=== PATIENT | male | born 1970 | race African-American/Black ===

== ENCOUNTER 2021-05-16 02:21 | Emergency (ER) | payer SELFPAY ==
[2021-05-16 02:34] VITALS: BP 127/82; PULSE 75; RESP 18; TEMP 37.1; O2SAT 96
--- NOTE | 2021-05-16 02:43 | PC.NURSE ---
Per ED MD Rose and anode rebuilder, pt does not require sitter at this time. Will reassess pt after police booking officer leaves.
--- NOTE | 2021-05-16 03:07 | ED.PSYCH ---
HPI - Psych General Chief Complaint: Psychiatric Symptoms Stated Complaint: ANXIETY, SI WITH NO PLAN Time Seen by Provider: 05/16/21 02:28 History of Present Illness HPI Narrative: Patient is a 51-year-old male who presents ER with reports of suicidal ideation. Patient apparently was at [employer] and did not want to pay for his food. Police arrived. He has made statements that he was suicidal and so police brought him to the emergency room. During my evaluation the patient patient reports that he has no suicidal ideation at this time. Reports he merely had anxiety that he may get into a confrontation with another person. Denies hearing voices or seeing things are not actually there. He has no homicidal ideation. Reports history of paranoid schizophrenia in the past but has never been on any psychiatric medication outpatient. Reports he has been seen at [facility] in the past as well. Patient reports that this time he just like to sleep in the ER. He has no physical complaints of pain or other medical ailments. Review of Systems Review of Systems: All systems reviewed & are unremarkable except as noted in HPI and below Constitutional: Constitutional: Denies chills, Denies fever(s) and Denies weakness Cardiovascular: Cardiovascular: Denies chest pain, Denies rapid heart rate and Denies radiating jaw, neck or arm pain Respiratory: Respiratory: Denies cough, Denies dyspnea and Denies wheezing Gastrointestinal: Gastrointestinal: Denies abdominal pain, Denies nausea and Denies vomiting Neurologic: Denies headache(s), Denies focal weakness and Denies numbness Psychiatric: Psychiatric: Reports anxiety, Denies depression, Denies homicidal ideation and Denies suicidal ideation PMFSH Past Medical History Medical History (Updated 05/16/21 @ 03:11 by Trey Rose MD) Schizophrenia Unverified Surgical History Surgical History (Updated 05/16/21 @ 03:09 by Trey Rose MD) No pertinent past surgical history Social History Social History Substance use type: unknown Exam Narrative: GENERAL: Well-appearing, well-nourished, and in no acute distress. HEAD: Normocephalic, atraumatic. ENT: Mucous membranes moist. CHEST: Clear to auscultation. No respiratory distress. HEART: Regular rate and rhythm. Normal peripheral pulses. ABDOMEN: Soft, nontender, nondistended. EXTREMITIES: Normal range of motion. No edema. SKIN: Warm, dry, no rash. NEURO: Alert and oriented x3. PSYCH: Normal mood and affect. Course Course Emergency Course: Patient with no medical complaints. No complaints of SI or HI. No active hallucinations and responds appropriately. [place] appropriate for discharge. Suspect he is trying to avoid additional interaction with the police. Vital Signs Vital signs: Vital Signs Temperature 98.8 F 05/16/21 02:34 Pulse Rate 75 05/16/21 02:34 Respiratory Rate 18 05/16/21 02:34 Blood Pressure 127/82 05/16/21 02:34 Pulse Oximetry 96 05/16/21 02:34 Temperature 98.8 F 05/16/21 02:34 Pulse Rate 75 05/16/21 02:34 Respiratory Rate 18 05/16/21 02:34 Blood Pressure 127/82 05/16/21 02:34 Pulse Oximetry 96 05/16/21 02:34 Discharge Plan Discharge Clinical Impression: Anxiety Patient Disposition: Home, Self-Care Condition: Stable Instructions: Anxiety (ED) Additional Instructions: Return to the ER if you have chest pain or shortness of breath, you cannot keep down food or water, you lose consciousness, you have additional concerns. Follow-up/Referrals: Mil Nelson MD [Physician] - UNKNOWN,DOCTOR [Primary Care Provider] -
--- NOTE | 2021-05-16 03:27 | PC.NURSE ---
assuming care of this pt from rossi anderson. ed physician speaking with pt. pt denies si or hi. pt was just looking for place to rest. [place] patrol police lieutenant informed.
--- NOTE | 2021-05-16 03:33 | PC.NURSE ---
pt refuses to sign d/c papers. copy given to pt in his belonging bag which has been placed at bedside. police informed that pt being uncooperative with d/c
--- NOTE | 2021-05-16 03:46 | PC.NURSE ---
pt escorted out of room 11 and to exit. police no longer involved with case
--- NOTE | 2021-05-16 03:53 | PC.NURSE ---
pt stopped in bathroom and did not leave unit. security outside bathroom door waiting on pt to emerge.
--- NOTE | 2021-05-16 04:03 | PC.NURSE ---
pt left ed without event. security present.
== END 2021-05-16 03:46 | disposition home or self-care (01) ==
PROVIDERS: Emergency Provider Emergency Medicine
DX: F41.9 Anxiety disorder, unspecified (principal)
CPT/HCPCS: 99281

== ENCOUNTER 2021-05-16 11:21 | Emergency (ER) | payer SELFPAY ==
--- NOTE | ~2021-05-16 | XR_ITS ---
EXAMINATION: XR hand RT min 3V DATE: 05/16/2021 16:16 INDICATION: Right hand pain and swelling. TECHNIQUE: 3 views of right hand were obtained. COMPARISON: None. FINDINGS: Bone alignment is normal. No fracture. Joint spaces are well maintained. IMPRESSION: 1. No fracture. Reviewed, dictated and finalized at location A. OGRAPHY TEACHER IMPRESSION: 1. No fracture.
[2021-05-16 12:01] VITALS: BP 130/72; PULSE 83; RESP 20; TEMP 36.8; O2SAT 99
[2021-05-16 15:39] VITALS: BP 126/55; PULSE 73; RESP 14; O2SAT 100
[2021-05-16 16:03] LABS: Glucose Point of Care 93 mg/dl (65-105)
--- NOTE | 2021-05-16 17:03 | ED.GENADULT ---
HPI - General Adult General Chief complaint: Extremity Problem,Nontraumatic Stated complaint: blood clot in arm Time Seen by Provider: 05/16/21 15:40 Source: patient Mode of arrival: ambulatory Limitations: no limitations History of Present Illness HPI narrative: Patient is a 51-year-old male with history of schizophrenia and homelessness presenting with chief complaint of wanting his right hand evaluated. Patient reports that he has been working hard lately and notes swelling to the right hand. She states he wants to make sure there is not signs of a blood clot. He denies any compression or increased warmth to the hand. He states he has been working and has not been home. He denies recollection of specific time of injury. He states he is thirsty He denies drug use. Review of Systems Review of Systems: CONSTITUTIONAL: Denies fever, chills, or sweats. EYES: Denies visual changes, redness, or discharge. ENT: Denies rhinorrhea, congestion, sore throat, or otalgia. CARDIOVASCULAR: Denies chest pain, palpitations, or edema. RESPIRATORY: Denies cough or dyspnea. GASTROINTESTINAL: Denies abdominal pain, nausea, vomiting, or diarrhea. GENITOURINARY: Denies dysuria or hematuria. SKIN: Denies rash or itching. MUSCULOSKELETAL: Reports right hand pain denies back pain, joint pain, or myalgia. NEUROLOGIC: Denies headache, numbness, dizziness, or weakness. PSYCHIATRIC: Denies anxiety or depression. [facility] Past Medical History Medical History (Updated 05/16/21 @ 16:48 by Judy Garcia PA-C) Schizophrenia Unverified Surgical History Surgical History (Updated 05/16/21 @ 03:09 by Trey Rose MD) No pertinent past surgical history Social History Social History Substance use type: unknown Exam Narrative: GENERAL:In no acute distress. Patient wanting to sleep, telling staff to leave the room.Patient uncooperative. CHEST: No tachypnea. No respiratory distress. No wheezes rales or rhonchi HEART: Regular rate and rhythm. EXTREMITIES: Normal range of motion. No erythema or increased warmth to right arm. There are needle stick morales to AC. No drainage or sign of cellulitis or infection. Right hand mild swelling without erythema. ROM intact. pulses intact. SKIN: Warm, dry, no rash. NEURO: No focal deficits. Alert and oriented. Course Vital Signs Vital signs: Vital Signs Temperature 98.3 F 05/16/21 12:01 Pulse Rate 83 05/16/21 12:01 Respiratory Rate 20 05/16/21 12:01 Blood Pressure 130/72 05/16/21 12:01 Pulse Oximetry 99 05/16/21 12:01 Temperature 98.3 F 05/16/21 12:01 Pulse Rate 73 05/16/21 15:39 Respiratory Rate 14 05/16/21 15:39 Blood Pressure 126/55 L 05/16/21 15:39 Pulse Oximetry 100 05/16/21 15:39 Medical Decision Making MDM Narrative Medical decision making narrative: Patient is not cooperative and just wants to be given drinks and sleep in the bed. Patient asked about needle sticks in arm- states they are not from drug use but from other hospitals. Asked what patient was treated for- said none of my business or concern. Patient only interested in hand evaluation, but only allowing limited evaluation of hand and arm. No sign of infection or dvt. xray negative. Patient instructed to follow up with pcp. Vital Signs Vital Signs: Vital Signs Temperature 98.3 F 05/16/21 12:01 Pulse Rate 83 05/16/21 12:01 Respiratory Rate 20 05/16/21 12:01 Blood Pressure 130/72 05/16/21 12:01 Pulse Oximetry 99 05/16/21 12:01 Temperature 98.3 F 05/16/21 12:01 Pulse Rate 73 05/16/21 15:39 Respiratory Rate 14 05/16/21 15:39 Blood Pressure 126/55 L 05/16/21 15:39 Pulse Oximetry 100 05/16/21 15:39 Lab Data Labs: Lab Results 05/16/21 Range/Units 16:00 POC Capillary Glucose 93 (65-105) mg/dl Discharge Plan Discharge Clinical Impression: Homelessness, Hand pain, right Patient Disposition: Home, Self-Care Condition: Improved Instructions
== END 2021-05-16 18:03 | disposition home or self-care (01) ==
PROVIDERS: Emergency Provider Emergency Medicine
DX: M79.641 Pain in right hand (principal); Z59.00 Homelessness unspecified
CPT/HCPCS: 73130; 82948; 99283

== ENCOUNTER 2021-05-19 05:01 | Emergency (ER) | payer SELFPAY ==
--- NOTE | ~2021-05-19 | XR_ITS ---
XR chest 1V portable DATE: 05/19/2021 06:05 INDICATION: Cough. TECHNIQUE: Portable AP chest on 05/19/2021 at 0555 hours COMPARISON: None FINDINGS: There is suggestion of minimal infiltrate or atelectasis in the right lower lung. The lungs otherwise appear clear. No pleural effusion or pulmonary vascular congestion or pneumothorax. Normal heart size. No hilar or mediastinal enlargement. Included skeletal structures are unremarkable. IMPRESSION: Minimal infiltrate or atelectasis in right lower lung is suggested Reviewed, dictated and finalized at location A. ENT ENGINEER
--- NOTE | ~2021-05-19 | CT_ITS ---
EXAMINATION: CT brain wo con DATE: 05/19/2021 05:50 INDICATION: Headache. Altered mental status. TECHNIQUE: Computed tomography (CT) of the head was performed without intravenous contrast. The mA wa s adjusted according to patient size. Iterative reconstruction technique was employed. Exam dose: 68 1.00 mGy-cm total exam DLP. COMPARISON: None FINDINGS: Approximately 5 mm rounded metallic opacity in the lower mid posterior scalp, likely a subc utaneous BB. No skull fracture or bone destruction. The paranasal sinuses are well-developed and aerated. There is an approximately 8.5 mm mucus retention cyst or polyp in the left maxillary sinus. No intracranial mass lesion or hemorrhage, midline shift or mass effect effect or cerebrovascular acc ident. Normal ventricular size. Normal keith-white matter differentiation. No subdural or epidural hem atoma. IMPRESSION: No intracranial abnormality Reviewed, dictated and finalized at Location A. Reviewed, dictated and finalized at location A. O WRITER OPERATOR IMPRESSION: No intracranial abnormality
[2021-05-19 05:01] VITALS: BP 107/57; PULSE 70; RESP 16; TEMP 36.2; O2SAT 100
[2021-05-19 06:14] LABS: Basophils Percent Auto 0.4 % (0.2-1.2); Eosinophils Absolute Auto 0.1 K/mm3 (0-0.3); Eosinophils Percent Auto 1.8 % (0-4.4); Hematocrit 39.8 % (42.0-52.0); Hemoglobin 12.9 g/dL (14.0-18.0); Immature Granulocyte Absolute 0.06 K/mm3 (0.00-0.031); Immature Granulocyte Percent A 0.8 % (0-0.5); Lymphocytes Absolute Auto 1.95 K/mm3 (0.9-3.2); Lymphocytes Percent Auto 25.3 % (18.3-44.2); Mean Corpuscular HGB Conc 32.4 g/dl (32-36); Mean Corpuscular Hemoglobin 29.1 pg (26-34); Mean Corpuscular Volume 89.6 fl (80-100); Mean Platelet Volume 9.5 fl (7.4-10.4); Monocytes Absolute Auto 0.8 K/mm3 (0.1-0.6); Monocytes Percent Auto 10.8 % (2.6-8.5); Neutrophils Absolute Auto 4.7 K/mm3 (1.3-6.7); Neutrophils Percent Auto 60.9 % (45.5-73.1); Platelet Count Result 235 k/mm3 (150-375); Red Blood Count 4.44 M/mm3 (4.6-6.20); Red Cell Distribution Width 13.7 % (11.5-14.5); White Blood Count 7.7 K/mm3 (4.5-10.0)
[2021-05-19 06:22] LABS: Ammonia < 9 umol/L (9-30); Ethanol < 10 mg/dL (<10)
[2021-05-19 06:25] LABS: Alanine Aminotransferase 26 U/L (4-50); Albumin Level 4.4 g/dL (3.5-5.1); Alkaline Phosphatase 83 U/L (38-126); Anion Gap 8 mmol/L (8-16); Aspartate Amino Transferase 31 U/L (17-59); Bilirubin,Total 0.8 mg/dL (0.2-1.3); Blood Urea Nitrogen 9 mg/dL (9-20); Calcium 9.3 mg/dL (8.4-10.2); Carbon Dioxide 29 mmol/L (22-30); Chloride 102 mmol/L (98-107); Estimated CRCL calculation 139 ml/min; Estimated Glomerular Filt Rate > 60; Glucose 101 mg/dL (65-110); Potassium 3.5 mmol/L (3.4-5.0); Sodium 139 mmol/L (137-145)
[2021-05-19 06:29] LABS: Partial Thromboplastin Time 28.3 SECONDS (22.3-36.8); Prothrombin Time 13.1 Seconds (11.1-14.7)
[2021-05-19 06:37] LABS: Valproic Acid < 10.0 ug/mL (50-120)
[2021-05-19 07:00] LABS: Amphetamine Screen Urine Negative (Negative); Barbiturate Screen Urine Negative (Negative); Benzodiazepines Screen Urine Negative (Negative); Cannabinoid Screen Urine Negative (Negative); Cocaine Screen Urine Negative (Negative); Methadone Screen Urine Negative (Negative); Opiate Screen Urine Negative (Negative); Phencyclidine Screen Urine Negative (Negative)
[2021-05-19 07:04] LABS: Add Urine Microscopic? YES; Amorphous Sediment Urine Few; Appearance Urine Cloudy (Clear); Bacteria Urine Trace /hpf; Bilirubin Urine Negative (Negative); Blood Urine Negative (Negative); Color Urine Yellow (Yellow); Glucose Urine UA Negative (Negative); Ketones Urine Negative (Negative); Leukocyte Esterase Ur Negative LEU/UL (Negative); Mucus Urine Few /lpf; Nitrate Urine Negative (Negative); Protein Urine Negative (Negative); Specific Grav Ur 1.025 (1.001-1.035); Squamous Epithelial Cell Urine Occasional /hpf (Few); WBC Urine 0-3 /hpf
[2021-05-19 07:16] VITALS: BP 94/55; PULSE 72; RESP 22
--- NOTE | 2021-05-19 07:27 | ED.GENADULT ---
HPI - General Adult General Chief complaint: Headache <Della Enciso MD - Last Filed: 05/19/21 07:37> Stated complaint: headache, altered loc, homeless sleeping in lobby <Della Enciso MD - Last Filed: 05/19/21 07:37> Time Seen by Provider: 05/19/21 05:01 <Della Enciso MD - Last Filed: 05/19/21 07:37> Source: patient and EMS <Della Enciso MD - Last Filed: 05/19/21 07:37> Mode of arrival: EMS <Della Enciso MD - Last Filed: 05/19/21 07:37> History of Present Illness HPI narrative: This is an male who presents via EMS for evaluation of possible headache and altered mental status. EMS states patient is homeless and he was sleeping the lobby of police station. They report he was oriented x 1 only and denied history of schizophrenia. Police report patient had headache and requested to be evaluated. Patient states he had mild headache but not bothing him now. Police reported that patient's name is Shahid Wade but patient states his name is Sascha Piedra Ramon. He also reported his date is October 26, 1969. Patient states he needs his relaxation medication. He reports history of bipolar and he also states he was on Depakote. He states he has been to [facility] before. He also reports mild cough but denies chest pain or shortness of breath. He denies drug use and reports he has not drank alcohol in a long time. <Della Enciso MD - Last Filed: 05/19/21 07:37> Review of Systems Review of Systems: All systems reviewed & are unremarkable except as noted in HPI and below <Della Enciso MD - Last Filed: 05/19/21 07:37> [facility] Past Medical History Medical History: Medical History (Updated 05/19/21 @ 07:36 by Della Enciso MD) Bipolar disorder <Della Enciso MD - Last Filed: 05/19/21 07:37> Surgical History Surgical History: Surgical History (Updated 05/19/21 @ 07:33 by Della Enciso MD) Surgical history unknown <Della Enciso MD - Last Filed: 05/19/21 07:37> Social History Social History: Social History (Updated 05/19/21 @ 07:33 by Della Enciso MD) Smoking packs per day: 2 Smoking cigarettes per day: 40.0 Smoking status: Current every day smoker Alcohol intake: current Substance use: never <Della Enciso MD - Last Filed: 05/19/21 07:37> Exam Const: General: no acute distress and alert <Della Enciso MD - Last Filed: 05/19/21 07:37> Other: torn clothing. Able to state name, year, and place <Della Enciso MD - Last Filed: 05/19/21 07:37> HENMT: Head: normocephalic and atraumatic <Della Enciso MD - Last Filed: 05/19/21 07:37> Face and sinus: normal facial exam, sinuses nontender and face symmetric <Della Enciso MD - Last Filed: 05/19/21 07:37> Mouth: Yes Normal oral and palatal mucosa present, Yes lip normal, Yes oropharynx normal and Yes moist mucous membranes <Della Enciso MD - Last Filed: 05/19/21 07:37> Eyes: Pupils: Equal, round and reactive pupils present <Della Enciso MD - Last Filed: 05/19/21 07:37> EOM: EOMs intact bilaterally <Della Enciso MD - Last Filed: 05/19/21 07:37> Resp: Effort & Inspection: normal respiratory effort and no retractions <Della Enciso MD - Last Filed: 05/19/21 07:37> Auscultation: clear to auscultation bilaterally <Dlela Enciso MD - Last Filed: 05/19/21 07:37> Cardio: Rate: regular rate <Della Enciso MD - Last Filed: 05/19/21 07:37> Rhythm: regular rhythm <Della Enciso MD - Last Filed: 05/19/21 07:37> Heart sounds: no murmurs <Della Enciso MD - Last Filed: 05/19/21 07:37> GI: GI Palp: Yes Soft to palpation, No Tenderness to palpation present (GI) and No Guarding due to palpation present (GI) <Della Enciso MD - Last Filed: 05/19/21 07:37> Auscultation: normal bowel sounds <Della Enciso MD - Last Filed: 05/19/21 07:37> Neuro: General: moves al
[2021-05-19] MEDS: SODIUM CHLORIDE 0.9% IV 1,000 ML 999 ML IV CONT (07:30)
--- NOTE | 2021-05-19 07:38 | PC.NURSE ---
this rn explained to patient that I would be doing a Covid swab. when attempting to swab, pt began swatting the swab away and stated you aint putting shit up my nose
--- NOTE | 2021-05-19 08:38 | PC.NURSE ---
pt is refusing to answer questions for this nurse. States he is done talking to us. Nursing staff recognizes patient and know name. Pt gives multiple names.
[2021-05-19 09:00] VITALS: BP 108/65; PULSE 70; RESP 18; O2SAT 97
--- NOTE | 2021-05-19 09:52 | PC.NURSE ---
crisis here with patient. crisis reports difficulty waking patient.
--- NOTE | 2021-05-19 10:36 | PC.NURSE ---
care management here to talk with patient. pt is not waking to talk with her. care management will call some homeless shelters to see if there are any openings.
--- NOTE | 2021-05-19 11:26 | PCCCNOTE ---
Called to ER to meet with patient for resources.
--- NOTE | 2021-05-19 11:53 | PCCCNOTE ---
Addendum entered by Anabell Mata RN 05/19/21 13:12: Updated ER director strategic account management Susie and Bedside BRYANT Mckeon, met with patient to discuss options of either warming center at [facility] or [facility], patient said he is just waking up wants food and something to drink. Explained that we would certainly get his something to eat but want to discuss homeless long term options that care program resident has. Mbr is not agreeable. Updated bedside BRYANT Mckeon, provided Linda with two cab vouchers- one for the [facility] and one for [place] and once he decides that she will have the cab voucher to provide transportation. Addendum entered by Anabell Mata RN 05/19/21 12:53: Return Phone Call received from Tania from [facility], all shelters are full but tonight at 5pm, [facility] is opening in [place]. [facility], [address] [place] [address], [place] [address]. Should arrive early to make sure he gets a spot but it is a large setting. Addendum entered by Anabell Mata RN 05/19/21 12:46: Additional call to [facility], no answer, left message with request for return call to ED cargo services coordinator. Addendum entered by Anabell Mata RN 05/19/21 12:11: Resource paper with all details and phone call attempts provided to ED bedside BRYANT Mckeon. Updated director strategic account management Susie. Original Note: Called to ED to meet with patient for homeless long term resources. Patient has been screened by crisis. Went to patient's bedside. Called name several times, nudged patient multiple times and tried to introduce self. Patient mumbled and would not wake up to talk with care program resident. Ethnology Professor called [facility] spoke with escalation engineer that states that they have a day program and night facility across the street, walk ins no active mental health symptoms. There is a bus stop across the street [facility]. Called to [facility] @ 11- no answer left a message for return call to ED. Called to [facility], awaiting call left phone number in [place] for a call back. Called to [facility], left phone number for a return call/place in [place] held. Called to [facility]- Women and Children only. Called to [facility] - they advised to call [facility] Homeless Hotline as they only receive referrals from the hotline. Called to [facility] -they are not a homeless long term but a social media manager center and advised [facility]. Called to [facility]- they are only women and children only. Per [email or web address] and zip code search- advised to call [phone]. Message has already been left with [facility] which is the same number.
[2021-05-19 12:00] VITALS: BP 104/59; PULSE 72; RESP 18; O2SAT 99
== END 2021-05-19 13:56 | disposition home or self-care (01) ==
PROVIDERS: Emergency Provider General Practice
DX: R46.89 Other symptoms and signs involving appearance and behavior (principal); F17.210 Nicotine dependence, cigarettes, uncomplicated; Z59.00 Homelessness unspecified; F31.9 Bipolar disorder, unspecified
CPT/HCPCS: 36415; 70450; 71045; 80053; 80164; 80307; 81001; 82140; 83735; 85025; 85610; 85730; 96360; 96361; 99284; J7030